=== PATIENT | female | born 1995 | race Caucasian/White ===

== ENCOUNTER 2018-02-12 21:33 | Emergency (ER) | payer BC ==
[2018-02-12] MEDS ORDERED: Morphine 4 MG/ML VIAL ONE (22:15)
[2018-02-12] MEDS ORDERED: Acetaminophen 500 MG TAB ONE (22:15)
[2018-02-12] MEDS ORDERED: Ondansetron PF 4 MG/2 ML Vial ONE (22:15)
[2018-02-12 22:34] LABS: #Eosinphils 0.1 thou/uL (0.0-0.7); #Monocytes 0.4 thou/uL (0.11-0.59); #Neutrophils 3.9 thou/uL (1.40-6.50); %Basophils 0.6 % (0.0-1.0); %Lymphocytes 17.7 % (21.0-51.0); %Neutrophils 72.7 % (42.0-75.0); Hemoglobin 15.3 g/dL (12.0-16.0); Mean Corpuscular HGB CONC 33.7 g/dL (32.0-36.0); Mean Corpuscular Hemoglobin 32.5 pg (27.0-31.0); Mean Corpuscular Volume 96.4 fL (78.0-98.0); Mean Platelet Volume 8.8 fL (7.4-10.4); Platelet Count 126 thou/uL (130-400); RBC Distribution Width 11.5 % (11.5-14.5); Red Blood Cell (RBC) Count 4.72 mill/uL (4.20-5.40); White Blood Cell (WBC) Count 5.4 thou/uL (4.8-10.8)
[2018-02-12 22:36] LABS: BHCG - Serum Negative (NEGATIVE); Pregs Control Background? CLEAR/WHITE (CLR/WHITE); Pregs Control Bar Appear? YES (CONTROL BAR)
[2018-02-12 22:54] LABS: ALT (SGPT) 22 U/L (8-55); AST (SGOT) 23 U/L (5-34); Albumin 4.9 g/dL (3.5-5.0); Alkaline Phosphatase 50 U/L (40-150); Anion Gap 15 mmol/L (10-20); BUN (Urea Nitrogen) 6 mg/dL (7.0-18.7); Bilirubin, Total 0.5 mg/dL (0.2-1.2); Calc. Creatinine Clearance 0 mL/min (70-130); Calcium 8.9 mg/dL (7.8-10.44); Carbon Dioxide 19 mmol/L (22-29); Chloride 108 mmol/L (98-107); Estimated GFR-MDRD Greater than 90; Globulin 2.3 g/dL (2.4-3.5); Glucose 100 mg/dL (70-105); Potassium 3.5 mmol/L (3.5-5.1); Protein, Total 7.2 g/dL (6.0-8.3); Sodium 138 mmol/L (136-145)
[2018-02-13 00:10] LABS: Bilirubin Negative (Negative); Blood, Urine Negative (Negative); Clarity CLEAR (Clear); Glucose, Urine (Dipstick) Negative (Negative); Leukocyte Negative (Negative); Nitrite Negative (Negative); Protein, Urine (Dipstick) Negative (Neg-Trace); Specific Gravity, Urine 1.011 (1.002-1.036); Urobilinogen 0.2 mg/dL (0.2-1.0)
[2018-02-13] MEDS ORDERED: Fentanyl 100 MCG/2 ML VIAL ONE (01:39)
--- NOTE | 2018-02-13 09:19 | CT ---
PRELIMINARY REPORT/[facility]/EMERGENTY AFTER-HOURS PROCEDURE CT Abdomen and Pelvis With Intravenous Contrast EXAM DATE/TIME: 02/13/2018 2:18 AM CLINICAL HISTORY: 22 years old, female; Pain; Abdominal pain; Generalized; Patient HX: F22 presents to ed with C/O abd pain and diarrhea x3. PT reports waking up with diarrhea, and initially thought it was from food last night. PT reports abd pain lingered throughout the day, concentrated in the epigastric and umbilical regions. PT reports nausea, denies vomiting. PT states she was unaware she had a fever, lik herman because she used a heating pad all day to relieve the abd pain. PT reports pain with urination be ginning today. PT took imodium this morning. PT denies HX abd procedures. Lmp 01/30/2018. TECHNIQUE: Axial computed tomography images of the abdomen and pelvis with intravenous contrast. Coronal reformatted images were created and reviewed. COMPARISON: No relevant prior studies available. FINDINGS: Lower thorax: No acute findings. ABDOMEN: Liver: Normal. Gallbladder and bile ducts: Normal. Pancreas: Normal. Spleen: Normal. Adrenals: Normal. Kidneys and ureters: Normal. Stomach and bowel: Multiple loops of nondilated, gas and fluid-filled small bowel, which is a nonspec ific finding, but can be seen with enteritis. Appendix: No evidence of appendicitis. PELVIS: Bladder: Unremarkable as visualized. Reproductive: 2.3 cm right ovarian cyst. ABDOMEN and PELVIS: Intraperitoneal space: Small amount of pelvic free fluid, likely physiologic. Bones/joints: Mild levoscoliosis of the lumbar spine. Soft tissues: Normal. Vasculature: Normal. No abdominal aortic aneurysm. Lymph nodes: Normal. No enlarged lymph nodes. IMPRESSION: 1. Multiple loops of nondilated, gas and fluid-filled small bowel, which is a nonspecific finding, bu t can be seen with enteritis. 2. No acute abdominal or pelvic abnormality. 3. Appendix is not definitively visualized, but no definite secondary findings of acute appendicitis. If concern for acute appendicitis, consider repeat CT lower abdomen and pelvis with enteric contrast . Thank you for allowing us to participate in the care of your patient. Dictated and Authenticated by: Terrance Brothers MD 02/13/2018 3:32 AM Central Time ([place] & [place]) FINAL REPORT CT ABDOMEN AND PELVIS WITH CONTRAST: Date: 02/13/18 Nonspecific fluid-filled distended small bowel loops are noted as described on the preliminary report . I am in agreement with the preliminary report issued by [facility]. POS: [facility]
[2018-02-13] MEDS ORDERED: ISOVUE-370 76%-LOCM 1 ML ONE (10:58)
== END 2018-02-13 04:18 | disposition home or self-care (01) ==
LOC: ERS 21:33
DX: K52.9 Noninfective gastroenteritis and colitis, unspecified (principal)
CPT/HCPCS: 74177; 80053; 81003; 83605; 84703; 85025; 87040; 93005; 94760; 96361; 96374; 96375; J2270; J2405; J3010